=== PATIENT | female | born 1980 | race Caucasian/White ===

== ENCOUNTER 2017-10-15 20:54 | Emergency (ER) | payer MEDICAID ==
[~2017-10-15] VITALS: Ht 165.1 cm; Wt 105.9 kg
[2017-10-15 20:56] VITALS: BP 144/94
== END 2017-10-15 21:54 | disposition home or self-care (01) ==
LOC: ED 21:18
DX: J03.00 Acute streptococcal tonsillitis, unspecified (principal)
CPT/HCPCS: 99283

== ENCOUNTER 2018-09-02 00:08 | Emergency (ER) | payer MEDICAID ==
[~2018-09-02] VITALS: Ht 165.1 cm; Wt 109.9 kg
[2018-09-02 00:12] VITALS: BP 123/85
== END 2018-09-02 00:45 | disposition home or self-care (01) ==
LOC: ED 00:33
DX: K08.89 Other specified disorders of teeth and supporting structures (principal); M54.2 Cervicalgia; F17.210 Nicotine dependence, cigarettes, uncomplicated
CPT/HCPCS: 99283